=== PATIENT | male | born 1960 | race Two or more races ===

== ENCOUNTER 2018-05-06 10:37 | Emergency (ER) | payer OTHER, MEDICAID ==
[~2018-05-06] VITALS: Ht 177.8 cm; Wt 86.0 kg
[2018-05-06 10:41] VITALS: BP 162/90
== END 2018-05-06 11:01 | disposition home or self-care (01) ==
LOC: ER 10:57
DX: F10.129 Alcohol abuse with intoxication, unspecified (principal); I10 Essential (primary) hypertension; Y90.9 Presence of alcohol in blood, level not specified
CPT/HCPCS: 99283

== ENCOUNTER 2023-02-09 18:25 | Emergency (ER) | payer MEDICAID, OTHER ==
[~2023-02-09] VITALS: Ht 182.9 cm; Wt 75.0 kg
[2023-02-09 19:45] VITALS: BP 106/74
== END 2023-02-09 20:09 | disposition left against medical advice (07) ==
LOC: ER 18:25
DX: R55 Syncope and collapse (principal); R42 Dizziness and giddiness; I10 Essential (primary) hypertension
CPT/HCPCS: 93005; 99283

== ENCOUNTER 2024-01-14 15:14 | Emergency (ER) | payer OTHER ==
[~2024-01-14] VITALS: Ht 172.7 cm; Wt 68.0 kg
[2024-01-14 15:16] VITALS: O2SAT 97
[2024-01-14 16:45] LABS: BASOPHILS % 0.8 % (0.0-2.0); EOSINOPHILS % 2.1 % (0.0-5.0); HEMOGLOBIN. 11.4 g/dL (14.0-18.0); LYMPHOCYTES % 18.4 % (20.0-50.0); MEAN CORPUSCULAR HEMOGLOBIN 31.9 pg (28.0-32.0); MEAN CORPUSCULAR HGB CONC 33.5 g/dL (31.0-37.0); MEAN CORPUSCULAR VOLUME 95.1 fL (80.0-94.0); MONOCYTES % 6.2 % (2.0-8.0); NEUTROPHILS % 72.5 % (40.0-76.0); PLATELET 160 x1000/uL (130-400); RED BLOOD CELL COUNT 3.58 mill/uL (4.7-6.1); RED CELL DISTRIBUTION WIDTH 14.2 % (11.6-14.6)
[2024-01-14 16:46] LABS: CHLORIDE 112 mEq/L (98-107); POTASSIUM 3.4 mEq/L (3.5-5.1); SODIUM 140 mEq/L (136-145)
[2024-01-14 16:47] LABS: CARBON DIOXIDE 26 mEq/L (21-32)
[2024-01-14 16:48] LABS: CALCIUM 8.9 mg/dL (8.7-10.4)
[2024-01-14 16:53] LABS: CREATININE 2.1 mg/dL (0.6-1.3); GLUCOSE 94 mg/dL (70-105); UREA NITROGEN BLOOD 14 mg/dL (9-23)
[2024-01-14 16:54] LABS: TROPONIN I HIGH SENSITIVITY 29 ng/L (3.0-53)
[2024-01-14] MEDS: CLONIDINE 0.1MG TABLET PO NR (16:56)
[2024-01-14 17:04] LABS: PROTHROMBIN TIME 11.2 sec (9.6-11.0)
[2024-01-14 17:42] VITALS: BP 185/88; PULSE 98; RESP 15; TEMP 98.3
== END 2024-01-14 17:44 | disposition home or self-care (01) ==
LOC: ER 15:14
DX: R51.9 Headache, unspecified (principal); I10 Essential (primary) hypertension
CPT/HCPCS: 36415; 80048; 84484; 85025; 93005; 99284

== ENCOUNTER 2024-05-25 16:04 | Emergency (ER) | payer MEDICAID, OTHER ==
[~2024-05-25] VITALS: Ht 175.3 cm; Wt 66.0 kg
[2024-05-25 16:09] VITALS: O2SAT 100
[2024-05-25] MEDS: PIPERACILLIN/TAZO 3.375G/50ML 50 ML IV ONE (18:45)
[2024-05-25] MEDS: KETOROLAC 15MG/ML VIAL IV ONE (18:45)
[2024-05-25] MEDS: VANCOMYCIN 1G PREMIX 200 ML IV ONE (18:45)
[2024-05-25] MEDS: ENOXAPARIN 80MG/0.8ML SYR SUBCUT ONE (20:45)
[2024-05-25 21:14] LABS: BASOPHILS % 0.8 % (0.0-2.0); EOSINOPHILS % 1.7 % (0.0-5.0); HEMATOCRIT. 27.7 % (42.0-52.0); HEMOGLOBIN. 9.5 g/dL (14.0-18.0); LYMPHOCYTES % 16.5 % (20.0-50.0); MEAN CORPUSCULAR HEMOGLOBIN 32.6 pg (28.0-32.0); MEAN CORPUSCULAR HGB CONC 34.3 g/dL (31.0-37.0); MEAN CORPUSCULAR VOLUME 95.3 fL (80.0-94.0); MEAN PLATELET VOLUME 8.5 fl (7.4-10.4); MONOCYTES % 6.2 % (2.0-8.0); NEUTROPHILS % 74.8 % (40.0-76.0); PLATELET 231 x1000/uL (130-400); RED BLOOD CELL COUNT 2.91 mill/uL (4.7-6.1); RED CELL DISTRIBUTION WIDTH 12.3 % (11.6-14.6); WHITE BLOOD COUNT 7.7 x1000/uL (4.5-11.0)
[2024-05-25 21:21] LABS: CHLORIDE 106 mEq/L (98-107); POTASSIUM 3.1 mEq/L (3.5-5.1); SODIUM 141 mEq/L (136-145)
[2024-05-25 21:22] LABS: CALCIUM 8.5 mg/dL (8.7-10.4); CARBON DIOXIDE 33 mEq/L (21-32)
[2024-05-25 21:25] LABS: PROTHROMBIN TIME 11.4 sec (9.6-11.0)
[2024-05-25 21:27] LABS: GLUCOSE 107 mg/dL (70-105); UREA NITROGEN BLOOD 26 mg/dL (9-23)
[2024-05-25 21:29] LABS: ALANINE AMINOTRANSFERASE 65 IU/L (10-49); ALBUMIN 3.3 g/dL (3.2-4.8); ASPARTATE AMINOTRANSFERASE 84 IU/L (<34); BILIRUBIN TOTAL 0.4 mg/dL (0.1-1.0); PROTEIN TOTAL 6.3 g/dL (6.0-8.3)
[2024-05-25] MEDS: POTASSIUM CHLORIDE 20MEQ/PACKET PO ONE (22:15)
[2024-05-26] MEDS: AMLODIPINE 10MG TABLET PO ONE (01:09)
[2024-05-26 01:20] VITALS: BP 197/101; PULSE 83; RESP 16; TEMP 36.66960; O2SAT 100
== END 2024-05-26 01:50 | disposition short-term general hospital (02) ==
LOC: ER 16:04
DX: S52.601A Unspecified fracture of lower end of right ulna, initial encounter for closed fracture (principal); L03.116 Cellulitis of left lower limb; E87.6 Hypokalemia; N28.9 Disorder of kidney and ureter, unspecified; I10 Essential (primary) hypertension; I82.402 Acute embolism and thrombosis of unspecified deep veins of left lower extremity; W18.39XA Other fall on same level, initial encounter; Y93.89 Activity, other specified; Y92.89 Other specified places as the place of occurrence of the external cause; Y99.8 Other external cause status
CPT/HCPCS: 99285; 93971; 71045; 80053; 85025; 85610; 85730; 87040; 36415; 73090; 73100; 73120; 73560; 73590; 73600; 73620; 29125; 93005; J1885; J2543; J3370; A4565